=== PATIENT | male | born 1945 | race Caucasian/White ===

== ENCOUNTER 2020-02-06 13:02 | Outpatient (RCR) | payer MEDICARE, BC ==
[2020-02-03 13:18] VITALS: BP 155/82; PULSE 84; TEMP 98.5
[2020-02-04 12:31] VITALS: BP 152/72; PULSE 58; TEMP 97.4
[~2020-02-06] VITALS: Ht 193 cm; Wt 102.0 kg
[~2020-02-06 13:02] MED LIST: B COMPLEX #11 TA1 PO; CENTRUM SILVER CHEW PO; CITRACAL + D CA1 TAB PO; FLAXSEED OIL1000 MG PO; MASON NATURAL1200 MG PO; MASON NATURAL2000 IU PO; OCUVITE1 TA1 PO; PHARMASSURE ZIN50 MG PO; PRINZIDE 12.5 M1 TA1 PO; SYNTHROID 0.10.15 MG PO; TUMS500 MG PO; VITAMIN K0.1 MG PO
[2020-02-10 12:35] LABS: THYROGLOBULIN AB SCREEN <1.8 IU/mL (<1.8); THYROGLOBULIN TUMOR MARKER 3.3 ng/mL (())
== END 2020-02-23 | disposition home or self-care (01) ==
LOC: EUO
PROVIDERS: Otolaryngology
DX: C73 Malignant neoplasm of thyroid gland (principal)
CPT/HCPCS: A9516; J3240

== ENCOUNTER 2020-03-31 11:04 | Outpatient (RCR) | payer MEDICARE, BC ==
[2020-03-22 12:15] VITALS: BP 132/71; PULSE 97; TEMP 98.6
[2020-03-23 11:45] VITALS: BP 123/69; PULSE 86; TEMP 98.6
[~2020-03-31] VITALS: Ht 193 cm; Wt 97.2 kg
[~2020-03-31 11:04] MED LIST changes: +ALLEGRA 180MG180 MG PO; +CYANOCOBAL1000 MCG/M IM; +FLOMAX 0.40.4 MG/CAP PO; +LIPITOR 40MG TA40 MG PO; +LOPRESSOR 225 MG/TAB PO; +LYRICA 25MG CAP25 MG PO; +MELATONIN5 M1 SL; +PEPCID 20MG TAB20 MG PO
[2020-04-02 13:03] LABS: THYROGLOBULIN AB SCREEN <1.8 IU/mL (<1.8); THYROGLOBULIN TUMOR MARKER 33 ng/mL (())
[2020-11-01] MEDS ORDERED: COREG 25MG25 MG/TAB PO (14:08)
== END 2020-06-20 | disposition still patient (30) ==
LOC: COL.LAB
PROVIDERS: Otolaryngology
DX: C73 Malignant neoplasm of thyroid gland (principal)
CPT/HCPCS: A9517; J3240

== ENCOUNTER 2020-11-03 12:30 | Outpatient (RCR) | payer MEDICARE, BC ==
[2020-11-01 13:34] VITALS: BP 170/64; PULSE 67; TEMP 98.4
[2020-11-02 13:15] VITALS: BP 750/69; PULSE 54; TEMP 97.3
--- NOTE | 2020-11-02 13:38 | NUR ---
Pt arrived to [facility] for thyrogen injection. He is A&O x3, denies any problems. IM injection to R Deltoid per patient request. No adverse reaction, pt left unit ambulatory.
[~2020-11-03] VITALS: Ht 193.1 cm; Wt 93.5 kg
[~2020-11-03 12:30] MED LIST changes: +COREG 25MG25 MG/TAB PO
[2020-11-09 17:27] LABS: THYROGLOBULIN AB SCREEN <1.8 IU/mL (<1.8); THYROGLOBULIN TUMOR MARKER 0.1 ng/mL (())
== END 2021-01-30 | disposition still patient (30) ==
LOC: COL.RAD
PROVIDERS: Otolaryngology
DX: C73 Malignant neoplasm of thyroid gland (principal)
CPT/HCPCS: A9516; J3240